=== PATIENT | male | born 1965 | race Caucasian/White ===

== ENCOUNTER 2023-07-21 11:42 | Outpatient (CLI) | payer OTHER ==
[~2023-07-21] VITALS: Ht 180.3 cm; Wt 80.2 kg
[~2023-07-21 11:42] MED LIST: AMITRIPTYLINE H50 M1 PO; DEPAKOTE 250MG250 MG PO; LIPITOR20 MG PO; MAXALT10 MG PO; PROTONIX 40MG T40 MG PO; TOPAMAX50 MG PO
[2023-07-21 12:01] VITALS: BP 129/92; PULSE 111; TEMP 97.4
[2023-07-21 13:30] VITALS: BP 125/92; PULSE 68; PULSE 73
[2023-07-21 13:45] VITALS: BP 122/90; PULSE 70
[2023-07-21 14:00] VITALS: BP 124/89; PULSE 75
[2023-07-21 14:02] LABS: GLUCOSE,CSF 62 mg/dL (40-70); TOTAL PROTEIN,CSF 86 mg/dL (15-45)
[2023-07-21 14:15] VITALS: BP 123/83; PULSE 74
[2023-07-21 14:30] VITALS: BP 118/86; PULSE 72
[2023-07-21 14:49] LABS: CSF APPEARANCE HAZY; CSF COLOR PINK
[2023-07-21 14:56] LABS: CSF RBC 3000 /mm3 (0-0)
[2023-07-21 14:58] LABS: CSF MONONUCLEAR 67 % (70-100); CSF POLYMORPHONUCLEAR 33 % (0-6)
--- NOTE | 2023-07-21 15:13 | NUR ---
pt tolerated recovery period well and was assisted to main lobby via wheelchair upon discharge. vs remained within normal limits and pt dressing was clean dry and intact upon discharge. pt free from acute concerns and complaints at time of discharge.
== END 2023-07-21 15:00 | disposition home or self-care (01) ==
LOC: COL.RAD 11:42
PROVIDERS: Psychiatry & Neurology Neurology
DX: G43.009 Migraine without aura, not intractable, without status migrainosus (principal); R42 Dizziness and giddiness; M54.2 Cervicalgia; R00.2 Palpitations; E78.2 Mixed hyperlipidemia